=== PATIENT | male | born 1950 | race Caucasian/White ===

== ENCOUNTER → 2021-05-14 13:44 | Outpatient (CLI) | payer MEDICARE, SELFPAY ==
--- NOTE | ~2021-05-14 | XR_ITS ---
EXAMINATION: XR hand LT 2V DATE: 05/14/2021 13:56 INDICATION: Trigger finger involving left middle finger. TECHNIQUE: 2 views of left hand were obtained. COMPARISON: None. FINDINGS: There is flexion of third distal interphalangeal joint and full extension of third proximal interphalangeal joint. There is hyperextension of fourth proximal interphalangeal joint and mild fle xion of fourth distal interphalangeal joint. No fracture. There is mild osteoarthritis of first carpo metacarpal joint, second and third metacarpophalangeal joints, and most of the interphalangeal joints . IMPRESSION: 1. Abnormal flexion of third distal interphalangeal joint. 2. Mild polyarticular osteoarthritis. Reviewed, dictated and finalized at location A.
== END ==
PROVIDERS: PCP Family Medicine; Visit Provider Nurse Practitioner Family
DX: M65.332 Trigger finger, left middle finger (principal); M19.042 Primary osteoarthritis, left hand
CPT/HCPCS: 73120

== ENCOUNTER 2024-05-02 10:24 | Outpatient (CLI) | payer MEDICARE, SELFPAY ==
--- NOTE | ~2024-05-02 | US_ITS ---
BILATERAL LOWER EXTREMITY VENOUS ULTRASOUND Ordering provider: FLORA Quinonez History: . PAIN IN LEFT LEG . Comparison: None. FINDINGS: RIGHT LOWER EXTREMITY VEINS: --COMMON FEMORAL: Patent and free of thrombus. Normal compressibility, phasic flow and augmentation. --PROXIMAL SUPERFICIAL FEMORAL: Patent and free of thrombus. Normal compressibility, phasic flow and augmentation. --DISTAL SUPERFICIAL FEMORAL: Patent and free of thrombus. Normal compressibility, phasic flow and au gmentation. --POPLITEAL: Patent and free of thrombus. Normal compressibility, phasic flow and augmentation. --POSTERIOR TIBIAL: Patent and free of thrombus. Normal compressibility, phasic flow and augmentation . LEFT LOWER EXTREMITY VEINS: --COMMON FEMORAL: Patent and free of thrombus. Normal compressibility, phasic flow and augmentation. --PROXIMAL SUPERFICIAL FEMORAL: Patent and free of thrombus. Normal compressibility, phasic flow and augmentation. --DISTAL SUPERFICIAL FEMORAL: Patent and free of thrombus. Normal compressibility, phasic flow and au gmentation. --POPLITEAL: Patent and free of thrombus. Normal compressibility, phasic flow and augmentation. --POSTERIOR TIBIAL: Patent and free of thrombus. Normal compressibility, phasic flow and augmentation . IMPRESSION: Negative bilateral lower extremity venous US. No deep vein thrombosis. Reviewed, dictated and finalized at location A.
== END 2024-05-02 10:25 | disposition home or self-care (01) ==
PROVIDERS: PCP Family Medicine; Visit Provider Nurse Practitioner Family
DX: M79.605 Pain in left leg (principal)
CPT/HCPCS: 93970

== ENCOUNTER 2024-10-31 01:16 | Day surgery (SDC) | payer MEDICARE, SELFPAY ==
[2024-10-25 09:58] VITALS: BMI 34.3
[2024-10-31 09:21] VITALS: BP 143/72; PULSE 56; RESP 16; TEMP 36.1; O2SAT 97
[2024-10-31] MEDS: LACTATED RINGERS 1,000 ML 150 ML IV CONT (09:31)
[2024-10-31 09:33] LABS: Glucose Point of Care 102 mg/dl (65-105)
--- NOTE | 2024-10-31 09:35 | WPDANESEPPF ---
Anes - Initial Pre Proc Eval Procedure: Operation Date: 10/31/24 10:30 Proposed Procedures p Screening Colonoscopy - Alfred Roberts MD Date/Time: 10/31/24 09:35 Surgeon: Alfred Roberts MD Pre Op Diagnosis: Encounter for screening for malignant neoplasm of Patient Data Age: 74 Gender: M Height: 1.85 m Weight: 118.5 kg Last Vital Signs Temp 36.1 C L 10/31/24 09:21 Pulse 56 L 10/31/24 09:21 Resp 16 10/31/24 09:21 BP 143/72 H 10/31/24 09:21 Pulse Ox 97 10/31/24 09:21 O2 Del Method Room Air 10/31/24 09:21 Allergies Allergy/AdvReac Type Severity Reaction Status Date / Time Penicillins Allergy Unknown Rash Verified 10/31/24 09:17 Sulfa (Sulfonamide AdvReac Mild Rash Verified 10/31/24 09:17 Antibiotics) Home Medications ?Medication ?Instructions ?Recorded ?Confirmed ?Type aspirin 81 mg tablet,delayed 81 mg PO DAILY 07/02/19 10/31/24 History release (Aspir-) amlodipine 5 mg tablet See Rx Instructions .Route 05/25/24 10/31/24 Rx .COMPLEX #90 tabs febuxostat 40 mg tablet (Uloric) 40 mg PO DAILY #90 tabs 05/29/24 10/31/24 Rx gabapentin 300 mg capsule See Rx Instructions .Route 06/11/24 10/31/24 Rx .COMPLEX #270 caps finasteride 5 mg tablet 5 mg PO DAILY #90 tabs 06/14/24 10/31/24 Rx clonidine HCl 0.2 mg tablet See Rx Instructions .Route 07/02/24 10/31/24 Rx .COMPLEX #90 tabs furosemide 40 mg tablet 40 mg PO QAM #90 tabs 07/20/24 10/31/24 Rx metformin 500 mg tablet,extended 2,000 mg (4 x 500 mg) PO DAILY 08/07/24 10/31/24 Rx release 24 hr #360 tabs rosuvastatin 20 mg tablet See Rx Instructions .Route 08/14/24 10/31/24 Rx .COMPLEX #90 tabs potassium chloride 10 mEq See Rx Instructions .Route 08/21/24 10/31/24 Rx tablet,extended release .COMPLEX #180 tabs dapagliflozin propanediol 10 mg 10 mg PO DAILY #90 tabs 09/28/24 10/31/24 Rx tablet (Farxiga) metoprolol tartrate 100 mg tablet See Rx Instructions .Route 09/28/24 10/31/24 Rx .COMPLEX #180 tabs losartan 100 1 tablet PO DAILY #90 tabs 10/13/24 10/31/24 Rx mg-hydrochlorothiazide 25 mg tablet diclofenac sodium 1 % topical gel 2 g topical QID PRN pain 10/16/24 10/25/24 History tirzepatide 2.5 mg/0.5 mL 2.5 mg (0.5 mL) subcut WEEKLY #2 mL 10/16/24 10/31/24 Rx subcutaneous pen injector (Mounjaro) Laboratory Tests 10/31/24 09:29 POC Capillary Glucose 102 mg/dl (65-105) Patient hx anesthesia problems: none Family hx anesthesia problems: none Results Review: All pre-operative results and documents have been reviewed as part of the pre-operative evaluation. [facility] Past Medical History Medical History Encounter for counseling for travel Blunt trauma of right lower leg Type 2 diabetes mellitus with mild nonproliferative diabetic retinopathy without macular edema, bilateral Right ankle injury Bilateral impacted cerumen BPH w urinary obs/LUTS Lower extremity pain, left Essential (primary) hypertension Gout, unspecified Mixed hyperlipidemia EBENEZER on CPAP Type 2 diabetes mellitus without complications Family History Family History Mother Hypertension Dementia Father Family history of coronary artery disease Heart disease Sibling Hypertension Diabetes mellitus Lupus Other Cerebrovascular accident Social History Social History Years smoked: 8 Smoking status: Former smoker Tobacco type: pipe Second hand tobacco smoke exposure: No Smoking end date: 07/19/76 Alcohol intake: current Drinks per week: 2 Substance use: never Substance use type: does not use Do You Feel Safe in your Home?: Yes Lack of Transportation: No Lack of Food: Never True Current Housing: I Have Housing Concerned About Future Housing: No Difficulty Paying Gas/Electric Bills: No Difficulty Paying for Meds: No Currently Unemployed: No Education: Master's Degree or Higher Difficulty w/ Childcare or Family Care: No Living arrangements: with family Additional living arrangements comments: Occupation/Education: retired 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 Informed Consent: The patient's anesthetic plan and its attendant risks and benefits were discussed with the patient/family/POA. Questions were solicited and answers provided to the satisfaction of the patient/family/POA.
--- NOTE | 2024-10-31 09:42 | P.HP_ITS ---
History of Present Illness History of Present Illness Consent: Risks, benefits, and alternatives have been discussed and questions answered. Patient agrees to proceed with procedure. 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 without macular edema, bilateral Right ankle injury Bilateral impacted cerumen BPH w urinary obs/LUTS Lower extremity pain, left Essential (primary) hypertension Gout, unspecified Mixed hyperlipidemia EBENEZER on CPAP Type 2 diabetes mellitus without complications Family History Family History Mother Hypertension Dementia Father Family history of coronary artery disease Heart disease Sibling Hypertension Diabetes mellitus Lupus Other Cerebrovascular accident Social History Social History Years smoked: 8 Smoking status: Former smoker Tobacco type: pipe Second hand tobacco smoke exposure: No Smoking end date: 07/19/76 Alcohol intake: current Drinks per week: 2 Substance use: never Substance use type: does not use Do You Feel Safe in your Home?: Yes Lack of Transportation: No Lack of Food: Never True Current Housing: I Have Housing Concerned About Future Housing: No Difficulty Paying Gas/Electric Bills: No Difficulty Paying for Meds: No Currently Unemployed: No Education: Master's Degree or Higher Difficulty w/ Childcare or Family Care: No Living arrangements: with family Additional living arrangements comments: Occupation/Education: retired 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 Gender identity (if verbalized by the patient): Male Spiritual care concerns: No Meds Home Medications and Allergies Home Medications ?Medication ?Instructions ?Recorded ?Confirmed ?Type aspirin 81 mg tablet,delayed 81 mg PO DAILY 07/02/19 10/31/24 History release (Aspir-) amlodipine 5 mg tablet See Rx Instructions .Route 05/25/24 10/31/24 Rx .COMPLEX #90 tabs febuxostat 40 mg tablet (Uloric) 40 mg PO DAILY #90 tabs 05/29/24 10/31/24 Rx gabapentin 300 mg capsule See Rx Instructions .Route 06/11/24 10/31/24 Rx .COMPLEX #270 caps finasteride 5 mg tablet 5 mg PO DAILY #90 tabs 06/14/24 10/31/24 Rx clonidine HCl 0.2 mg tablet See Rx Instructions .Route 07/02/24 10/31/24 Rx .COMPLEX #90 tabs furosemide 40 mg tablet 40 mg PO QAM #90 tabs 07/20/24 10/31/24 Rx metformin 500 mg tablet,extended 2,000 mg (4 x 500 mg) PO DAILY 08/07/24 10/31/24 Rx release 24 hr #360 tabs rosuvastatin 20 mg tablet See Rx Instructions .Route 08/14/24 10/31/24 Rx .COMPLEX #90 tabs potassium chloride 10 mEq See Rx Instructions .Route 08/21/24 10/31/24 Rx tablet,extended release .COMPLEX #180 tabs dapagliflozin propanediol 10 mg 10 mg PO DAILY #90 tabs 09/28/24 10/31/24 Rx tablet (Farxiga) metoprolol tartrate 100 mg tablet See Rx Instructions .Route 09/28/24 10/31/24 Rx .COMPLEX #180 tabs losartan 100 1 tablet PO DAILY #90 tabs 10/13/24 10/31/24 Rx mg-hydrochlorothiazide 25 mg tablet diclofenac sodium 1 % topical gel 2 g topical QID PRN pain 10/16/24 10/25/24 History tirzepatide 2.5 mg/0.5 mL 2.5 mg (0.5 mL) subcut WEEKLY #2 mL 10/16/24 10/31/24 Rx subcutaneous pen injector (Rob) Allergies Allergy/AdvReac Type Severity Reaction Status Date / Time Penicillins Allergy Unknown Rash Verified 10/31/24 09:17 Sulfa (Sulfonamide AdvReac Mild Rash Verified 10/31/24 09:17 Antibiotics) Vital Signs Vital Signs - 24 hr 10/31/24 09:21 Temperature 96.9 F L Pulse Rate 56 L Respiratory Rate 16 Blood Pressure 143/72 H Pulse Oximetry 97 Oxygen Delivery Room Air Exam Const: General: comfortable and no acute distress HENMT: Face/Nose/Sinus: Normal nares present Eyes: General: appearance normal, both eyes and all related structures Neck: Neck: no JVD Resp: Auscultation: clear to auscultation bilaterally Cardio: Rate: regular rate Rhythm: regular rhythm GI: Inspection: non-distended GI Palp: Yes Soft to palpation Skin: General skin exam: normal color Neuro: Speech: normal speech Extrem: General: normal to inspection Psych: Mental Status: mental status grossly normal Assessment and Plan Assessment and plan (1) Screen for colon cancer: Code(s): Z12.11 - Encounter for screening for malignant neoplasm of colon Status: Acute Assessment and Plan: colonoscopy
[2024-10-31 10:07] VITALS: BP 105/65; PULSE 60; RESP 20; O2SAT 97
[2024-10-31 10:17] VITALS: BP 119/69; PULSE 53; RESP 18; O2SAT 98
[2024-10-31 10:27] VITALS: BP 121/70; PULSE 53; RESP 17; O2SAT 96
== END 2024-10-31 10:44 | disposition home or self-care (01) ==
PROVIDERS: PCP Family Medicine; Referring Provider Family Medicine; Visit Provider Internal Medicine Gastroenterology
PROC: 0DJD8ZZ Inspection of Lower Intestinal Tract, Via Natural or Artificial Opening Endoscopic (ICD-10-PCS; CPT 45378; principal; 2024-10-31 10:30)
DX: Z12.11 Encounter for screening for malignant neoplasm of colon (principal); D12.2 Benign neoplasm of ascending colon; K63.5 Polyp of colon; K64.8 Other hemorrhoids; K57.30 Diverticulosis of large intestine without perforation or abscess without bleeding; I10 Essential (primary) hypertension; E78.2 Mixed hyperlipidemia; E11.3293 Type 2 diabetes mellitus with mild nonproliferative diabetic retinopathy without macular edema, bilateral; N40.1 Benign prostatic hyperplasia with lower urinary tract symptoms; G47.33 Obstructive sleep apnea (adult) (pediatric); E66.9 Obesity, unspecified; Z68.34 Body mass index [BMI] 34.0-34.9, adult; Z79.82 Long term (current) use of aspirin; Z79.84 Long term (current) use of oral hypoglycemic drugs; Z79.85 Long-term (current) use of injectable non-insulin antidiabetic drugs; Z99.89 Dependence on other enabling machines and devices; Z87.891 Personal history of nicotine dependence; Z82.49 Family history of ischemic heart disease and other diseases of the circulatory system
CPT/HCPCS: 45380; 45385; 82948; 88305; J2704; J7120

== ENCOUNTER 2025-01-04 12:45 | Outpatient (CLI) | payer MEDICARE, SELFPAY ==
--- NOTE | ~2025-01-04 | US_ITS ---
EXAM: RENAL ULTRASOUND HISTORY: N18.32 - Chronic kidney disease, stage 3b COMPARISON: None FINDINGS: RIGHT KIDNEY: 12.5 x 6.2 x 6.5 cm. The parenchyma of the right kidney is increased in echogenicity. No hydronephrosis or renal calculi. A well-circumscribed anechoic avascular structure is identified within the upper pole of the right ki dney, consistent with a simple cyst measuring 16 x 19 x 19 mm, for which no further follow-up is need ed. LEFT KIDNEY: 11.6 x 6.1 x 5.5 cm No hydronephrosis or renal calculi. The parenchyma of the left kidney is increased in echogenicity. A well-circumscribed anechoic avascular structure is identified within the lower pole of the left joyce marla, consistent with a simple cyst measuring 23 x 18 x 17 mm for which no further follow-up is needed . BLADDER: Incomplete septations are identified within the bladder, for which no vascular interrogation was performed. Remainder of the bladder is otherwise unremarkable. IMPRESSION: No hydronephrosis or renal calculi. Findings suggesting medical renal disease. Simple cysts within the bilateral kidneys . Incomplete septations within the bladder, as detailed above. Reviewed, dictated and finalized at location A.
== END 2025-01-04 12:46 | disposition home or self-care (01) ==
LOC: MICIMG 12:46
PROVIDERS: PCP Family Medicine; Visit Provider Internal Medicine Nephrology
DX: E11.22 Type 2 diabetes mellitus with diabetic chronic kidney disease (principal); I12.9 Hypertensive chronic kidney disease with stage 1 through stage 4 chronic kidney disease, or unspecified chronic kidney disease; N18.32 Chronic kidney disease, stage 3b; N28.1 Cyst of kidney, acquired
CPT/HCPCS: 76775